=== PATIENT | female | born 1995 | race Caucasian/White ===

== ENCOUNTER → 2018-02-13 20:04 | Outpatient (CLI) | payer OTHER, SELFPAY ==
[2018-02-13 22:55] LABS: Urine N gonorrhoeae NOT DETECTED
[2018-02-13 22:59] LABS: Urine Chlamydia NOT DETECTED
== END ==
PROVIDERS: PCP Internal Medicine; Visit Provider Physician Assistant
DX: R10.2 Pelvic and perineal pain (principal)
CPT/HCPCS: 87491; 87591

== ENCOUNTER 2019-02-06 08:30 | Emergency (ER) | payer OTHER, SELFPAY ==
[2019-02-06 08:31] VITALS: BP 138/88; PULSE 93; RESP 16; TEMP 36.4; O2SAT 100; BMI 32.9
--- NOTE | 2019-02-06 08:50 | ED.ABDPAIN ---
HPI - Abdominal Pain General Chief Complaint: Abdominal Pain Stated Complaint: ABDOMAINL PAIN Time Seen by Provider: 02/06/19 08:31 Source: patient Mode of arrival: ambulatory Limitations: no limitations History of Present Illness HPI narrative: 23F nonsmoker presents with severe upper abdominal pain over the past few days. She denies provocation or palliation nor radiation. She's had nausea, but no vomiting. She's had no diarrhea. She denies exposure to bad food, recent antibiotics, or other ill persons. She's had no fever or chills. Related Data Home Medications Medication Instructions Recorded Confirmed metformin 500 mg PO BID 02/06/19 02/06/19 norgestimate-ethinyl estradiol 1 tab PO DAILY 02/06/19 02/06/19 [Tri-Estarylla] paroxetine HCl 20 mg PO DAILY 02/06/19 02/06/19 Previous Rx's Medication Instructions Recorded hydrocodone-acetaminophen 1 tab PO Q4-6H PRN #10 tab 02/06/19 ondansetron 4 mg PO TID-QID PRN #10 tab 02/06/19 pantoprazole [Protonix] 40 mg PO DAILY #30 tab 02/06/19 Allergies Allergy/AdvReac Type Severity Reaction Status Date / Time No Known Drug Allergies Allergy Verified 02/06/19 08:36 Review of Systems Constitutional Denies chills, Denies fever(s), Denies lethargy and Denies weakness Eyes Denies change in vision, Denies eye discharge, Denies irritation and Denies loss of vision ENT Ears, Nose, Mouth, and Throat: Denies change in voice, Denies neck pain and Denies sore throat Cardiovascular Denies chest pain, Denies irregular heart rhythm, Denies lightheadedness, Denies palpitations, Denies dyspnea, Denies dyspnea on exertion and Denies orthopnea Respiratory Denies cough, Denies dyspnea, Denies dyspnea on exertion and Denies wheezing Gastrointestinal Gastrointestinal: Reports abdominal pain, Denies change in bowel habits, Denies diarrhea, Reports nausea and Denies vomiting Genitourinary Denies hematuria, Denies flank pain, Denies urinary incontinence and Denies urinary urgency Musculoskeletal Denies neck pain Integumentary/Breasts Denies pruritus, Denies erythema, Denies rash and Denies wounds Neurologic Denies confusion, Denies loss of vision and Denies weakness Psychiatric Denies anxiety, Denies confusion, Denies depression, Denies homicidal ideation and Denies suicidal ideation Endocrine Denies palpitations Hematologic/Lymphatic Denies easy bruising Allergic/Immunologic Denies wheezing PFSH Medical History ADHD (attention deficit hyperactivity disorder) (Chronic 2008) Anxiety (Chronic 2012) Depression (Chronic 2003) Fecal incontinence (Chronic 2008) 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 Family/Other MS (multiple sclerosis) Blind Social History Smoking Status: Former smoker Family History Brother Age: 34 Hypothyroid Father Age: 58 Depression Alcoholism Mother Age: 53 Fibromyalgia Hypothyroid Depression Alcoholism Adopted Sister Age: 32 Fibromyalgia Hypothyroid Alcoholism Methamphetamine addiction Grandmother Breast cancer Grandfather MS (multiple sclerosis) Grandmother No problems noted. Family/Other MS (multiple sclerosis) Blind Social History Smoking Status: Former smoker Exam Narrative Exam Narrative: GENERAL: 23-year-old female appears stated age, obviously uncomfortable and HEAD: Atraumatic. Normocephalic. No temporal or scalp tenderness. EYES: Pupils equal round and reactive. Extraocular motions intact. No scleral icterus. No injection or drainage. ENT: Nose without bleeding, purulent drainage or septal hematoma. Throat without erythema, tonsillar hypertrophy or exudate. Uvula midline. Airway patent. NECK: Trachea midline. No JVD or lymphadenopathy. Supple, nontender, no meningeal signs. CARDIOVASCULAR: Regular rate and rhythm without murmurs, gallops, or rubs. RESPIRATORY: Clear to auscultation. Breath sounds equal bilaterally. No wheezes, rales, or rhonchi. GASTROINTESTINAL: Abdomen soft, tender in epigastric, nondistended. No hepato-splenomegaly, or palpable masses. No guarding. EXTREMITIES: No clubbing, cyanosis, or edema. No joint tenderness, effusion, or edema noted. BACK: Nontender without deformity or crepitance. No flank tenderness. NEURO: AOx3. SKIN: No rash or erythema. Initial Vital Signs Initial Vital Signs: Vital Signs Temperature 97.6 F 02/06/19 08:31 Pulse Rate 93 H 02/06/19 08:31 Respiratory Rate 16 02/06/19 08:31 Blood Pressure 138/88 02/06/19 08:31 Pulse Oximetry 100 02/06/19 08:31 Course Orders Ordered: ED Orders 02/06/19 09:19 Complete Blood Count AUTO DIFF Stat Comprehensive Metabolic Panel Stat Lipase Stat 02/06/19 09:23 US abdomen limited Stat 02/06/19 10:13 XR acute abdomen series Stat 02/06/19 11:49 CT abdomen pelvis w con Stat Discontinued Medications Hydromorphone HCl (Dilaudid) 0.5 mg IV NOW ONE Stop: 02/06/19 08:38 Last Admin: 02/06/19 09:32 Dose: 0.5 mg Hydromorphone HCl (Dilaudid) 0.5 mg IV NOW ONE Stop: 02/06/19 10:34 Last Admin: 02/06/19 10:47 Dose: 0.5 mg Hydromorphone HCl (Dilaudid) 0.5 mg IV NOW ONE Stop: 02/06/19 11:50 Last Admin: 02/06/19 12:02 Dose: 0.5 mg Sodium Chloride (Normal Saline 0.9%) 1,000 mls @ 150 mls/hr IV CONT PRO Last Infusion: 02/06/19 11:20 Dose: 0 mls/hr Admin: 02/06/19 09:33 Dose: 150 mls/hr Ondansetron HCl (Zofran) 4 mg IV NOW ONE Stop: 02/06/19 08:38 Last Admin: 02/06/19 09:32 Dose: 4 mg Pantoprazole Sodium (Protonix) 40 mg IV NOW ONE Stop: 02/06/19 08:38 Last Admin: 02/06/19 09:32 Dose: 40 mg Vital Signs - 8 hr 02/06/19 09:30 02/06/19 10:50 02/06/19 11:30 Pulse Rate 74 72 Respiratory Rate 14 14 15 Blood Pressure [Right Arm] 188/88 H 116/76 117/72 Pulse Oximetry 99 02/06/19 12:45 02/06/19 13:30 Pulse Rate 71 72 Respiratory Rate 17 16 Blood Pressure [Right Arm] 103/58 L 104/56 L Pulse Oximetry 99 98 MDM - Abdominal Pain Lab Data Result diagrams: 02/06/19 09:19 02/06/19 09:19 Lab Results 02/06/19 02/06/19 Range/Units 09: 09:19 WBC 10.5 (4.5-11.0) X10^3/uL RBC 4.38 (4.0-5.2) X10^6/uL Hgb 13.1 (12.0-16.0) g/dL Hct 39.0 (36-46) % MCV 89.0 (80-100) fL MCH 29.9 (26-34) PG MCHC 33.6 (30-36) % RDW 13.3 (11.6-14.8) % Plt Count 244 (150-400) X10^3/uL Neut % (Auto) 65.1 (50-75) % Lymph % (Auto) 14.7 L (25-40) % [place] % (Auto) 12.1 (3-14) % Eos % (Auto) 7.6 H (2-4) % Baso % (Auto) 0.5 (0-2) % Neut # (Auto) 6800 (9176-8628) /uL Lymph # (Auto) 1500 (9099-9693) /uL Fergus # (Auto) 1300 H (0-900) /uL Eos # (Auto) 800 H (0-450) /uL Baso # (Auto) 100 (0-100) /uL Sodium 138 (137-145) mmol/L Potassium 4.0 (3.4-5.1) mmol/L Chloride 107 (98-107) mmol/L Carbon Dioxide 24 (22-32) mmol/L BUN 10 (7-17) mg/dL Creatinine 0.60 (0.52-1.04) mg/dL Estimated GFR > 60.0 (>60) mL/min BUN/Creatinine Ratio 16.7 (6-22) Glucose 85 (70-100) mg/dL Calcium 8.4 (8.4-10.2) mg/dL Total Bilirubin 0.2 (0.2-1.3) mg/dL AST 32 (14-36) IU/L ALT 24 (9-52) IU/L Alkaline Phosphatase 57 (38-126) U/L Total Protein 6.6 (6.3-8.2) g/dL Albumin 3.9 (3.5-5.0) g/dL Globulin 2.7 (1.7-4.1) g/dL Albumin/Globulin Ratio 1.4 (1.0-2.8) Lipase 193 (23-300) U/L Point of care testing: Urine Dip Bedside Urine Glucose Negative Bedside Urine Bilirubin - Negative Bedside Urine Ketone - Negative Urine Specific [place] 1.025 Bedside Urine Occult Blood - Negative Bedside Urine pH 6.0 Bedside Urine Protein - Negative Bedside Urine Urobilinogen - Negative Bedside Urine Nitrite - Negative Bedside Urine Leukocytes - Negative Esterase Imaging Data US - abdomen: Radiologist's impression: Chart Viewer Diagnostics DATE TYPE STATUS AUTHOR Hx 02/06/19 10:13 Pato Witt 02/06/19 09:23 Pato Witt Arika J 23, F1995 [facility] ER, ED.LOC - Main ED: R05 162.56cm 87.09kg BMI: 33.0kg/m? Abdominal Pain Search Chart ONSET 10/01/15 10/15/15 10/15/15 12/10/15 12/10/15 Today 10:50 Rose Brown 23 F 1995 [place] [address] Ultrasound Report Signed Patient: StephanieRose JMR#: [id number] : 1995Acct:[id number] Age/Sex: 23 FDate of Service: 02/06/19 Loc: ED Accession Number: [id number] Procedure: US abdomen limited Ordering Provider: Vinicius Haider D.O. PROCEDURE: US ABDOMEN LIMITED INDICATIONS: EPIGASTRIC PAIN TECHNIQUE: Real-time focused scanning was performed of the abdomen, with image documentation. COMPARISON: None. FINDINGS: The liver is normal in size and echotexture without focal intrahepatic abnormalities. No intrahepatic or extrahepatic biliary ductal dilatation. Common bile duct measures 6 mm. The gallbladder is normal in sonographic appearance without gallstones, wall thickening, pericholecystic fluid, or abnormal sonographic Vizcaino sign. No evidence for choledocholithiasis. No ascites. No suspicious abdominal mass lesion or adenopathy. The visualized pancreas demonstrates minimally increased echotexture. Area of epigastric pain in the left epigastric region is without underlying sonographic abnormalities. IMPRESSION: 1. Subtle, diffusely increased echotexture of the pancreas which may be related to patient scanning characteristics. However, mild pancreatitis not excluded if clinically appropriate. 2. Mild prominence of the common bile duct for patient age measuring 6 mm in diameter. No evidence for choledocholithiasis, intrahepatic biliary ductal dilatation, or periportal adenopathy or mass lesions. Consider correlation with laboratory evaluation. 3. No sonographic abnormalities identified in the patient directed area of pain. Dictated by: Pato Witt M.D. on 02/06/2019 at 10:36 Approved by: Pato Witt M.D. on 02/06/2019 at 10:41 Abdominal x-ray: Radiologist's impression: [place] [address] XRay Report Signed Patient: Rose Brown JMR#: [id number] : 1995Acct:[id number] Age/Sex: 23 / FDate of Service: 02/06/19 Loc: ED Accession Number: [id number] Procedure: XR acute abdomen series Ordering Provider: Vinicius Haider D.O. PROCEDURE: XR ACUTE ABDOMEN SERIES INDICATIONS: Abdominal pain, severe upper TECHNIQUE: One view chest and two views of the abdomen were acquired. COMPARISON: None. FINDINGS: Surgical changes and devices: None. Chest: Lungs are clear. Heart size is normal. No pleural effusions. No pneumoperitoneum. Abdomen: Bowel gas pattern is normal. No suspicious calcifications. Visualized solid organ contours appear normal. Bones: No suspicious bony lesions. IMPRESSION: No acute radiographic abnormalities identified in the chest or abdomen to explain patient's upper abdominal pain. Dictated by: Pato Witt M.D. on 02/06/2019 at 11:03 Approved by: Pato Witt M.D. on 02/06/2019 at 11:04 CT scan - abdomen: Radiologist's impression: [address] [address] [address] Scan Report Signed Patient: Rose Brown R#: [id number] : 1995Acct:[id number] Age/Sex: 23 / FDate of Service: 02/06/19 Loc: ED Accession Number: [id number] Procedure: CT abdomen pelvis w con Ordering Provider: Vinicius Haider D.O. PROCEDURE: CT ABDOMEN PELVIS W CON INDICATIONS: severe epigastric pain TECHNIQUE: After the administration of oral and intravenous contrast, 5 mm thick sections acquired from the diaphragms to the symphysis. 5 mm thick coronal and sagittal reformats were performed. For radiation dose reduction, the following was used: automated exposure control, adjustment of mA and/or kV according to patient size. COMPARISON: None. FINDINGS: Image quality: Excellent. ABDOMEN: Lung bases: Lung bases are clear. Heart size is normal. Solid organs: Liver is normal in size and enhancement. Gallbladder is within normal limits. Biliary system is non-dilated. Pancreas enhances normally. Spleen is normal in size and enhancement. No adrenal nodules. Kidneys are normal in size and enhancement, without hydronephrosis. Peritoneum and bowel: There is thickening of the gastric antrum. The small bowel, and colon loops are normal in caliber and wall thickness. No free fluid or air. Normal appendix. Nodes and vessels: No retroperitoneal or mesenteric adenopathy. Multiple mildly prominent subcentimeter mesenteric lymph nodes. Aorta and inferior vena cava are normal in caliber. Miscellaneous: No ventral hernias. PELVIS: Genitourinary: Bladder wall thickness is normal. 30 mm diameter right adnexal cyst. Miscellaneous: No inguinal hernias or adenopathy. Bones: No suspicious bony lesions. No vertebral body compression fractures. IMPRESSION: 1. Mildly prominent mesenteric lymph nodes, suggestive of mesenteric adenitis. 2. Normal appendix. 3. Thickening of the gastric antrum, which may indicate peptic ulcer disease. Further assessment with endoscopy is recommended. Dictated by: Wood Christine M.D. on 02/06/2019 at 11:46 Approved by: Wood Christine M.D. on 02/06/2019 at 11:49 MDM Narrative Medical decision making narrative: Multiple etiologies for patient's symptoms considered including: [mesenteric adenopathy vs. PUD vs. pancreatitis vs. other] Patient's symptoms improved or duration of stay with above-stated therapies. Findings and discharge diagnosis discussed with patient/family followed by verbalization of understanding Return precautions discussed with patient/family whom verbalize understanding. Discharge Plan Departure Patient Disposition: Home Clinical Impression: Acute epigastric pain Discharge Date/Time: 02/06/19 13:57 Interventions: ED Discharge Assessment Last Done: 02/06/19 13:57 Instructions: DI for Abdominal Pain-Adult Activity Restrictions/Additional Instructions: *You have been diagnosed with [acute epigastric pain, possibly mesenteric adenitis or peptic ulcer disease] *What to do: *Take medications as directed *Follow up with your primary care provider in 2-3 days, call for an appointment. Let them know you were seen in the Emergency Department and that we ask that you be seen in follow up *Return to ER if you should have any new, worsening or concerning symptoms 1. Drink plenty of fluids with frequent small sips. 2. For the next 24 hours a clear liquid diet is advised. After that please employ a brat diet which would include bananas, rice, apples, toast. 3. Please take medications as directed. Prescriptions: New hydrocodone-acetaminophen 5-325 mg tablet 1 tab PO Q4-6H PRN (Reason: pain) Qty: 10 RF: 0 ondansetron 4 mg tablet,disintegrating 4 mg PO TID-QID PRN (Reason: nausea and vomiting) Qty: 10 RF: 0 pantoprazole [Protonix] 40 mg tablet,delayed release (DR/EC) 40 mg PO DAILY Qty: 30 RF: 0 No Action metformin 500 mg tablet 500 mg PO BID RF: 0 paroxetine HCl 20 mg tablet 20 mg PO DAILY RF: 0 norgestimate-ethinyl estradiol [Tri-Estarylla] 0.18/0.215/0.25 mg-35 mcg (28) tablet 1 tab PO DAILY RF: 0 Referrals: Vanessa Christopher ARNP [Primary Care Provider] - Jesus Eason MD [Non-Staff] -
--- NOTE | 2019-02-06 08:53 | ED_ITS ---
HPI - Abdominal Pain General Chief Complaint: Abdominal Pain Stated Complaint: ABDOMAINL PAIN Time Seen by Provider: 02/06/19 08:31 Source: patient Mode of arrival: ambulatory Limitations: no limitations History of Present Illness HPI narrative: 23F nonsmoker presents with severe upper abdominal pain over the past few days. She denies provocation or palliation nor radiation. She's had nausea, but no vomiting. She's had no diarrhea. She denies exposure to bad food, recent antibiotics, or other ill persons. She's had no fever or chills. Related Data Home Medications Medication Instructions Recorded Confirmed metformin 500 mg PO BID 02/06/19 02/06/19 norgestimate-ethinyl estradiol 1 tab PO DAILY 02/06/19 02/06/19 [Tri-Estarylla] paroxetine HCl 20 mg PO DAILY 02/06/19 02/06/19 Previous Rx's Medication Instructions Recorded hydrocodone-acetaminophen 1 tab PO Q4-6H PRN #10 tab 02/06/19 ondansetron 4 mg PO TID-QID PRN #10 tab 02/06/19 pantoprazole [Protonix] 40 mg PO DAILY #30 tab 02/06/19 Allergies Allergy/AdvReac Type Severity Reaction Status Date / Time No Known Drug Allergies Allergy Verified 02/06/19 08:36 Review of Systems Constitutional Denies chills, Denies fever(s), Denies lethargy and Denies weakness Eyes Denies change in vision, Denies eye discharge, Denies irritation and Denies loss of vision ENT Ears, Nose, Mouth, and Throat: Denies change in voice, Denies neck pain and Denies sore throat Cardiovascular Denies chest pain, Denies irregular heart rhythm, Denies lightheadedness, Denies palpitations, Denies dyspnea, Denies dyspnea on exertion and Denies orthopnea Respiratory Denies cough, Denies dyspnea, Denies dyspnea on exertion and Denies wheezing Gastrointestinal Gastrointestinal: Reports abdominal pain, Denies change in bowel habits, Denies diarrhea, Reports nausea and Denies vomiting Genitourinary Denies hematuria, Denies flank pain, Denies urinary incontinence and Denies urinary urgency Musculoskeletal Denies neck pain Integumentary/Breasts Denies pruritus, Denies erythema, Denies rash and Denies wounds Neurologic Denies confusion, Denies loss of vision and Denies weakness Psychiatric Denies anxiety, Denies confusion, Denies depression, Denies homicidal ideation and Denies suicidal ideation Endocrine Denies palpitations Hematologic/Lymphatic Denies easy bruising Allergic/Immunologic Denies wheezing PFSH Medical History ADHD (attention deficit hyperactivity disorder) (Chronic 2008) Anxiety (Chronic 2012) Depression (Chronic 2003) Fecal incontinence (Chronic 2008) 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 Family/Other MS (multiple sclerosis) Blind Social History Smoking Status: Former smoker Family History Brother Age: 34 Hypothyroid Father Age: 58 Depression Alcoholism Mother Age: 53 Fibromyalgia Hypothyroid Depression Alcoholism Adopted Sister Age: 32 Fibromyalgia Hypothyroid Alcoholism Methamphetamine addiction Grandmother Breast cancer Grandfather MS (multiple sclerosis) Grandmother No problems noted. Family/Other MS (multiple sclerosis) Blind Social History Smoking Status: Former smoker Exam Narrative Exam Narrative: GENERAL: 23-year-old female appears stated age, obviously uncomfortable and HEAD: Atraumatic. Normocephalic. No temporal or scalp tenderness. EYES: Pupils equal round and reactive. Extraocular motions intact. No scleral icterus. No injection or drainage. ENT: Nose without bleeding, purulent drainage or septal hematoma. Throat without erythema, tonsillar hypertrophy or exudate. Uvula midline. Airway patent. NECK: Trachea midline. No JVD or lymphadenopathy. Supple, nontender, no meningeal signs. CARDIOVASCULAR: Regular rate and rhythm without murmurs, gallops, or rubs. RESPIRATORY: Clear to auscultation. Breath sounds equal bilaterally. No wheezes, rales, or rhonchi. GASTROINTESTINAL: Abdomen soft, tender in epigastric, nondistended. No hepato- splenomegaly, or palpable masses. No guarding. EXTREMITIES: No clubbing, cyanosis, or edema. No joint tenderness, effusion, or edema noted. BACK: Nontender without deformity or crepitance. No flank tenderness. NEURO: AOx3. SKIN: No rash or erythema. Initial Vital Signs Initial Vital Signs: Vital Signs Temperature 97.6 F 02/06/19 08:31 Pulse Rate 93 H 02/06/19 08:31 Respiratory Rate 16 02/06/19 08:31 Blood Pressure 138/88 02/06/19 08:31 Pulse Oximetry 100 02/06/19 08:31 Course Orders Ordered: ED Orders 02/06/19 09:19 Complete Blood Count AUTO DIFF Stat Comprehensive Metabolic Panel Stat Lipase Stat 02/06/19 09:23 US abdomen limited Stat 02/06/19 10:13 XR acute abdomen series Stat 02/06/19 11:49 CT abdomen pelvis w con Stat Discontinued Medications Hydromorphone HCl (Dilaudid) 0.5 mg IV NOW ONE Stop: 02/06/19 08:38 Last Admin: 02/06/19 09:32 Dose: 0.5 mg Hydromorphone HCl (Dilaudid) 0.5 mg IV NOW ONE Stop: 02/06/19 10:34 Last Admin: 02/06/19 10:47 Dose: 0.5 mg Hydromorphone HCl (Dilaudid) 0.5 mg IV NOW ONE Stop: 02/06/19 11:50 Last Admin: 02/06/19 12:02 Dose: 0.5 mg Sodium Chloride (Normal Saline 0.9%) 1,000 mls @ 150 mls/hr IV CONT PRO Last Infusion: 02/06/19 11:20 Dose: 0 mls/hr Admin: 02/06/19 09:33 Dose: 150 mls/hr Ondansetron HCl (Zofran) 4 mg IV NOW ONE Stop: 02/06/19 08:38 Last Admin: 02/06/19 09:32 Dose: 4 mg Pantoprazole Sodium (Protonix) 40 mg IV NOW ONE Stop: 02/06/19 08:38 Last Admin: 02/06/19 09:32 Dose: 40 mg Vital Signs - 8 hr 02/06/19 09:30 02/06/19 10:50 02/06/19 11:30 Pulse Rate 74 72 Respiratory Rate 14 14 15 Blood Pressure [Right Arm] 188/88 H 116/76 117/72 Pulse Oximetry 99 02/06/19 12:45 02/06/19 13:30 Pulse Rate 71 72 Respiratory Rate 17 16 Blood Pressure [Right Arm] 103/58 L 104/56 L Pulse Oximetry 99 98 MDM - Abdominal Pain Lab Data Result diagrams: 02/06/19 09:19 02/06/19 09:19 Lab Results 02/06/19 02/06/19 Range/Units 09: 09:19 WBC 10.5 (4.5-11.0) X10^3/uL RBC 4.38 (4.0-5.2) X10^6/uL Hgb 13.1 (12.0-16.0) g/dL Hct 39.0 (36-46) % MCV 89.0 (80-100) fL MCH 29.9 (26-34) PG MCHC 33.6 (30-36) % RDW 13.3 (11.6-14.8) % Plt Count 244 (150-400) X10^3/uL Neut % (Auto) 65.1 (50-75) % Lymph % (Auto) 14.7 L (25-40) % [place] % (Auto) 12.1 (3-14) % Eos % (Auto) 7.6 H (2-4) % Baso % (Auto) 0.5 (0-2) % Neut # (Auto) 6800 (4522-3743) /uL Lymph # (Auto) 1500 (3769-2450) /uL [place] # (Auto) 1300 H (0-900) /uL Eos # (Auto) 800 H (0-450) /uL Baso # (Auto) 100 (0-100) /uL Sodium 138 (137-145) mmol/L Potassium 4.0 (3.4-5.1) mmol/L Chloride 107 (98-107) mmol/L Carbon Dioxide 24 (22-32) mmol/L BUN 10 (7-17) mg/dL Creatinine 0.60 (0.52-1.04) mg/dL Estimated GFR > 60.0 (>60) mL/min BUN/Creatinine Ratio 16.7 (6-22) Glucose 85 (70-100) mg/dL Calcium 8.4 (8.4-10.2) mg/dL Total Bilirubin 0.2 (0.2-1.3) mg/dL AST 32 (14-36) IU/L ALT 24 (9-52) IU/L Alkaline Phosphatase 57 (38-126) U/L Total Protein 6.6 (6.3-8.2) g/dL Albumin 3.9 (3.5-5.0) g/dL Globulin 2.7 (1.7-4.1) g/dL Albumin/Globulin Ratio 1.4 (1.0-2.8) Lipase 193 (23-300) U/L Point of care testing: Urine Dip Bedside Urine Glucose Negative Bedside Urine Bilirubin - Negative Bedside Urine Ketone - Negative Urine Specific Ivins 1.025 Bedside Urine Occult Blood - Negative Bedside Urine pH 6.0 Bedside Urine Protein - Negative Bedside Urine Urobilinogen - Negative Bedside Urine Nitrite - Negative Bedside Urine Leukocytes - Negative Esterase Imaging Data US - abdomen: Radiologist's impression: Chart Viewer Diagnostics DATE TYPE STATUS AUTHOR Hx 02/06/19 10:13 Pato Witt 02/06/19 09:23 Pato Witt Arika J 23, F1995 [facility] ER, ED.LOC - Main ED: R05 162.56cm 87.09kg BMI: 33.0kg/m? Abdominal Pain Search Chart ONSET 10/01/15 10/15/15 10/15/15 12/10/15 12/10/15 Today 10:50 Rose Brown 23 F 1995 [place] [address] Ultrasound Report Signed Patient: StephanieRose JMR#: [id number] : 1995Acct:[id number] Age/Sex: 23 FDate of Service: 02/06/19 Loc: ED Accession Number: [id number] Procedure: US abdomen limited Ordering Provider: Vinicius Haider D.O. PROCEDURE: US ABDOMEN LIMITED INDICATIONS: EPIGASTRIC PAIN TECHNIQUE: Real-time focused scanning was performed of the abdomen, with image documentation. COMPARISON: None. FINDINGS: The liver is normal in size and echotexture without focal intrahepatic abnormalities. No intrahepatic or extrahepatic biliary ductal dilatation. Common bile duct measures 6 mm. The gallbladder is normal in sonographic appearance without gallstones, wall thickening, pericholecystic fluid, or abnormal sonographic Vizcaino sign. No evidence for choledocholithiasis. No ascites. No suspicious abdominal mass lesion or adenopathy. The visualized pancreas demonstrates minimally increased echotexture. Area of epigastric pain in the left epigastric region is without underlying sonographic abnormalities. IMPRESSION: 1. Subtle, diffusely increased echotexture of the pancreas which may be related to patient scanning characteristics. However, mild pancreatitis not excluded if clinically appropriate. 2. Mild prominence of the common bile duct for patient age measuring 6 mm in diameter. No evidence for choledocholithiasis, intrahepatic biliary ductal dilatation, or periportal adenopathy or mass lesions. Consider correlation with laboratory evaluation. 3. No sonographic abnormalities identified in the patient directed area of pain. Dictated by: Pato Witt M.D. on 02/06/2019 at 10:36 Approved by: Pato Witt M.D. on 02/06/2019 at 10:41 Abdominal x-ray: Radiologist's impression: [place] [address] XRay Report Signed Patient: Rose Brown JMR#: [id number] : 1995Acct:[id number] Age/Sex: 23 / FDate of Service: 02/06/19 Loc: ED Accession Number: [id number] Procedure: XR acute abdomen series Ordering Provider: Vinicius Haider D.O. PROCEDURE: XR ACUTE ABDOMEN SERIES INDICATIONS: Abdominal pain, severe upper TECHNIQUE: One view chest and two views of the abdomen were acquired. COMPARISON: None. FINDINGS: Surgical changes and devices: None. Chest: Lungs are clear. Heart size is normal. No pleural effusions. No pneumoperitoneum. Abdomen: Bowel gas pattern is normal. No suspicious calcifications. Visualized solid organ contours appear normal. Bones: No suspicious bony lesions. IMPRESSION: No acute radiographic abnormalities identified in the chest or abdomen to explain patient's upper abdominal pain. Dictated by: Pato Witt M.D. on 02/06/2019 at 11:03 Approved by: Pato Witt M.D. on 02/06/2019 at 11:04 CT scan - abdomen: Radiologist's impression: [address] [address] [address] Scan Report Signed Patient: Rose Brown R#: [id number] : 1995Acct:[id number] Age/Sex: 23 / FDate of Service: 02/06/19 Loc: ED Accession Number: [id number] Procedure: CT abdomen pelvis w con Ordering Provider: Vinicius Haider D.O. PROCEDURE: CT ABDOMEN PELVIS W CON INDICATIONS: severe epigastric pain TECHNIQUE: After the administration of oral and intravenous contrast, 5 mm thick sections acquired from the diaphragms to the symphysis. 5 mm thick coronal and sagittal reformats were performed. For radiation dose reduction, the following was used: automated exposure control, adjustment of mA and/or kV according to patient size. COMPARISON: None. FINDINGS: Image quality: Excellent. ABDOMEN: Lung bases: Lung bases are clear. Heart size is normal. Solid organs: Liver is normal in size and enhancement. Gallbladder is within normal limits. Biliary system is non-dilated. Pancreas enhances normally. Spleen is normal in size and enhancement. No adrenal nodules. Kidneys are normal in size and enhancement, without hydronephrosis. Peritoneum and bowel: There is thickening of the gastric antrum. The small bowel, and colon loops are normal in caliber and wall thickness. No free fluid or air. Normal appendix. Nodes and vessels: No retroperitoneal or mesenteric adenopathy. Multiple mildly prominent subcentimeter mesenteric lymph nodes. Aorta and inferior vena cava are normal in caliber. Miscellaneous: No ventral hernias. PELVIS: Genitourinary: Bladder wall thickness is normal. 30 mm diameter right adnexal cyst. Miscellaneous: No inguinal hernias or adenopathy. Bones: No suspicious bony lesions. No vertebral body compression fractures. IMPRESSION: 1. Mildly prominent mesenteric lymph nodes, suggestive of mesenteric adenitis. 2. Normal appendix. 3. Thickening of the gastric antrum, which may indicate peptic ulcer disease. Further assessment with endoscopy is recommended. Dictated by: Wood Christine M.D. on 02/06/2019 at 11:46 Approved by: Wood Christine M.D. on 02/06/2019 at 11:49 MDM Narrative Medical decision making narrative: Multiple etiologies for patient's symptoms considered including: [mesenteric adenopathy vs. PUD vs. pancreatitis vs. other] Patient's symptoms improved or duration of stay with above-stated therapies. Findings and discharge diagnosis discussed with patient/family followed by verbalization of understanding Return precautions discussed with patient/family whom verbalize understanding. Discharge Plan Departure Patient Disposition: Home Clinical Impression: Acute epigastric pain Discharge Date/Time: 02/06/19 13:57 Interventions: ED Discharge Assessment Last Done: 02/06/19 13:57 Instructions: DI for Abdominal Pain-Adult Activity Restrictions/Additional Instructions: *You have been diagnosed with [acute epigastric pain, possibly mesenteric adenitis or peptic ulcer disease] *What to do: *Take medications as directed *Follow up with your primary care provider in 2-3 days, call for an appointment. Let them know you were seen in the Emergency Department and that we ask that you be seen in follow up *Return to ER if you should have any new, worsening or concerning symptoms 1. Drink plenty of fluids with frequent small sips. 2. For the next 24 hours a clear liquid diet is advised. After that please employ a brat diet which would include bananas, rice, apples, toast. 3. Please take medications as directed. Prescriptions: New hydrocodone-acetaminophen 5-325 mg tablet 1 tab PO Q4-6H PRN (Reason: pain) Qty: 10 RF: 0 ondansetron 4 mg tablet,disintegrating 4 mg PO TID-QID PRN (Reason: nausea and vomiting) Qty: 10 RF: 0 pantoprazole [Protonix] 40 mg tablet,delayed release (DR/EC) 40 mg PO DAILY Qty: 30 RF: 0 No Action metformin 500 mg tablet 500 mg PO BID RF: 0 paroxetine HCl 20 mg tablet 20 mg PO DAILY RF: 0 norgestimate-ethinyl estradiol [Tri-Estarylla] 0.18/0.215/0.25 mg-35 mcg (28) tablet 1 tab PO DAILY RF: 0 Referrals: Vanessa Christopher ARNP [Primary Care Provider] - Jesus Eason MD [Non-Staff] -
--- NOTE | 2019-02-06 09:23 | DI.US.S_ITS ---
PROCEDURE: US ABDOMEN LIMITED INDICATIONS: EPIGASTRIC PAIN TECHNIQUE: Real-time focused scanning was performed of the abdomen, with image documentation. COMPARISON: None. FINDINGS: The liver is normal in size and echotexture without focal intrahepatic abnormalities. No intrahepatic or extrahepatic biliary ductal dilatation. Common bile duct measures 6 mm. The gallbladder is normal in sonographic appearance without gallstones, wall thickening, pericholecystic fluid, or abnormal sonographic Vizcaino sign. No evidence for choledocholithiasis. No ascites. No suspicious abdominal mass lesion or adenopathy. The visualized pancreas demonstrates minimally increased echotexture. Area of epigastric pain in the left epigastric region is without underlying sonographic abnormalities. IMPRESSION: 1. Subtle, diffusely increased echotexture of the pancreas which may be related to patient scanning characteristics. However, mild pancreatitis not excluded if clinically appropriate. 2. Mild prominence of the common bile duct for patient age measuring 6 mm in diameter. No evidence for choledocholithiasis, intrahepatic biliary ductal dilatation, or periportal adenopathy or mass lesions. Consider correlation with laboratory evaluation. 3. No sonographic abnormalities identified in the patient directed area of pain. Dictated by: Pato Witt M.D. on 02/06/2019 at 10:36 Approved by: Pato Witt M.D. on 02/06/2019 at 10:41
[2019-02-06 09:30] VITALS: BP 188/88; RESP 14
[2019-02-06] MEDS: ONDANSETRON 4 MG/2 ML INJ IV (09:32)
[2019-02-06] MEDS: PANTOPRAZOLE 40 MG VIAL IV (09:32)
[2019-02-06] MEDS: HYDROMORPHONE 1 MG INJ 0.5 MG IV ×2 (09:32→10:47)
[2019-02-06] MEDS: SODIUM CHLORIDE 0.9% 1,000 ML 150 ML IV (09:33)
[2019-02-06 09:36] LABS: Add Manual Diff / Slide Review NO; Basophils Absolute Auto 100 /uL (0-100); Basophils Percent Auto 0.5 % (0-2); Eosinophils Absolute Auto 800 /uL (0-450); Eosinophils Percent Auto 7.6 % (2-4); Hemoglobin 13.1 g/dL (12.0-16.0); Lymphocytes Absolute Auto 1500 /uL (1100-4500); Lymphocytes Percent Auto 14.7 % (25-40); Mean Corpuscular HGB Conc 33.6 % (30-36); Mean Corpuscular Hemoglobin 29.9 PG (26-34); Monocytes Absolute Auto 1300 /uL (0-900); Monocytes Percent Auto 12.1 % (3-14); Neutrophils Absolute Auto 6800 /uL (1500-7000); Neutrophils Percent Auto 65.1 % (50-75); Platelet Count 244 X10^3/uL (150-400); Red Blood Cell Count 4.38 X10^6/uL (4.0-5.2); Red Cell Distribution Width 13.3 % (11.6-14.8); White Blood Cell Count 10.5 X10^3/uL (4.5-11.0)
[2019-02-06 09:40] LABS: Alanine Aminotransferase 24 IU/L (9-52); Albumin 3.9 g/dL (3.5-5.0); Albumin Globulin Ratio 1.4 (1.0-2.8); Alkaline Phosphatase 57 U/L (38-126); Aspartate Aminotransferase 32 IU/L (14-36); BUN Creatinine Ratio 16.7 (6-22); Bilirubin Total 0.2 mg/dL (0.2-1.3); Blood Urea Nitrogen 10 mg/dL (7-17); Calcium 8.4 mg/dL (8.4-10.2); Carbon Dioxide 24 mmol/L (22-32); Chloride 107 mmol/L (98-107); Estimated Glomerular Filt Rate > 60.0 mL/min (>60); Globulin 2.7 g/dL (1.7-4.1); Glucose 85 mg/dL (70-100); HEMOLYSIS < 15 (0-50); Lipase 193 U/L (23-300); Sodium 138 mmol/L (137-145); Total Protein 6.6 g/dL (6.3-8.2)
--- NOTE | 2019-02-06 09:49 | PC.NURSE ---
Fluids given at 1000mL/hr per Dr. Haider
--- NOTE | 2019-02-06 10:13 | DI.RAD.S_ITS ---
PROCEDURE: XR ACUTE ABDOMEN SERIES INDICATIONS: Abdominal pain, severe upper TECHNIQUE: One view chest and two views of the abdomen were acquired. COMPARISON: None. FINDINGS: Surgical changes and devices: None. Chest: Lungs are clear. Heart size is normal. No pleural effusions. No pneumoperitoneum. Abdomen: Bowel gas pattern is normal. No suspicious calcifications. Visualized solid organ contours appear normal. Bones: No suspicious bony lesions. IMPRESSION: No acute radiographic abnormalities identified in the chest or abdomen to explain patient's upper abdominal pain. Dictated by: Pato Witt M.D. on 02/06/2019 at 11:03 Approved by: Pato Witt M.D. on 02/06/2019 at 11:04
[2019-02-06 10:50] VITALS: BP 116/76; PULSE 74; RESP 14
[2019-02-06 11:30] VITALS: BP 117/72; PULSE 72; RESP 15; O2SAT 99
--- NOTE | 2019-02-06 11:49 | DI.CT.S_ITS ---
PROCEDURE: CT ABDOMEN PELVIS W CON INDICATIONS: severe epigastric pain TECHNIQUE: After the administration of oral and intravenous contrast, 5 mm thick sections acquired from the diaphragms to the symphysis. 5 mm thick coronal and sagittal reformats were performed. For radiation dose reduction, the following was used: automated exposure control, adjustment of mA and/or kV according to patient size. COMPARISON: None. FINDINGS: Image quality: Excellent. ABDOMEN: Lung bases: Lung bases are clear. Heart size is normal. Solid organs: Liver is normal in size and enhancement. Gallbladder is within normal limits. Biliary system is non-dilated. Pancreas enhances normally. Spleen is normal in size and enhancement. No adrenal nodules. Kidneys are normal in size and enhancement, without hydronephrosis. Peritoneum and bowel: There is thickening of the gastric antrum. The small bowel, and colon loops are normal in caliber and wall thickness. No free fluid or air. Normal appendix. Nodes and vessels: No retroperitoneal or mesenteric adenopathy. Multiple mildly prominent subcentimeter mesenteric lymph nodes. Aorta and inferior vena cava are normal in caliber. Miscellaneous: No ventral hernias. PELVIS: Genitourinary: Bladder wall thickness is normal. 30 mm diameter right adnexal cyst. Miscellaneous: No inguinal hernias or adenopathy. Bones: No suspicious bony lesions. No vertebral body compression fractures. IMPRESSION: 1. Mildly prominent mesenteric lymph nodes, suggestive of mesenteric adenitis. 2. Normal appendix. 3. Thickening of the gastric antrum, which may indicate peptic ulcer disease. Further assessment with endoscopy is recommended. Dictated by: Wood Christine M.D. on 02/06/2019 at 11:46 Approved by: Wood Christine M.D. on 02/06/2019 at 11:49
[2019-02-06] MEDS: HYDROMORPHONE 0.5 MG INJ IV (12:02)
[2019-02-06 12:45] VITALS: BP 103/58; PULSE 71; RESP 17; O2SAT 99
[2019-02-06 13:30] VITALS: BP 104/56; PULSE 72; RESP 16; O2SAT 98
--- NOTE | 2019-02-06 13:49 | PC.NURSE ---
1340 Patient reports black tarry stools since tuesday for the first time, I spoke with Dr. Haider about this. Ok to DC. I encouraged patient to continue with plan of care and prescribed medication and follow up with PCP and GI specialist as soon as possible. I also encouraged her to follow up within the next week, especially if black tarry stools continue. Also informed of symptoms of anemia.
== END 2019-02-06 13:57 | disposition home or self-care (01) ==
PROVIDERS: Emergency Provider Emergency Medicine; PCP Internal Medicine
DX: R10.13 Epigastric pain (principal)
CPT/HCPCS: 36591; 74022; 74177; 76705; 80053; 81003; 83690; 85025; 96361; 96374; 96375; 96376; 99284; 99285; C9113; J1170; J2405; Q9967

== ENCOUNTER → 2021-08-16 14:05 | Outpatient (CLI) | payer OTHER, SELFPAY ==
[2021-08-16 15:03] LABS: COVID19 -Nasal RAPID Negative (Negative)
== END ==
PROVIDERS: PCP Internal Medicine; Visit Provider Physician Assistant
DX: Z20.822 Contact with and (suspected) exposure to COVID-19 (principal)
CPT/HCPCS: 87635